=== PATIENT | male | born 1970 | race Caucasian/White ===

== ENCOUNTER → 2016-08-08 | Outpatient (CLI) | payer BC ==
[~2016-08-08] MED LIST: ASPEC81 PO; BRL90 PO; ESCI1TAB10 PO; LPR25 PO; LPT40 PO; LSN25 PO
--- NOTE | 2016-08-09 22:00 | POLYSOMNOGRAPH REPORT ---
CLINICAL DATA: A 45-year-old male with BMI of 31.85, referred with a history of loud snoring, witnessed apneic episodes, fatigue, and hypersomnolence. On the evening of 08/08/2016, a home sleep apnea test was performed using [employer] type 3 monitor. RECORDING RESULTS: Total recording time was 10 hours. The patient's estimated sleep time and patient monitoring time was 9.4 hours. RESPIRATORY DATA: Moderate sleep apnea was documented. The LOKI was 15.2. There were 46 obstructive, 12 mixed, and 22 central apneic episodes. There were 63 hypopneic episodes. The longest respiratory event recorded was 40 seconds. OXIMETRY DATA: Transient nocturnal hypoxemia was seen. Oxygen isidro was 85%. Mean saturation was 95%. Time below 89% was 1 minute. HEART RATE DATA: Heart rates ranged from 43-56 beats per minute. SNORING DATA: Snoring was recorded throughout the night. IMPRESSION: Moderate sleep apnea/hypopnea with an LOKI of 15.2. RECOMMENDATIONS: The patient may benefit from weight loss, use of an oral appliance or a repeat sleep study with CPAP. Clinical correlation is needed. JAREND
== END | disposition home or self-care (01) ==
LOC: C.NEUR 09:03
PROVIDERS: ATTEND Internal Medicine Pulmonary Disease
DX: G25.81 Restless legs syndrome (principal); G47.30 Sleep apnea, unspecified

== ENCOUNTER → 2016-09-19 | Outpatient (CLI) | payer BC ==
[2016-09-19 10:18] LABS: CHOLESTEROL/HDL RATIO 3.4; FERRITIN 71.3 ng/ml (8.0-388.0); MAGNESIUM 2.4 mg/dl (1.8-2.4); THYROID STIMULATING HORMONE 1.83 uIu/ml (0.300-4.500)
== END | disposition home or self-care (01) ==
LOC: C.LAB 07:15
DX: I25.10 Atherosclerotic heart disease of native coronary artery without angina pectoris (principal); G47.00 Insomnia, unspecified

== ENCOUNTER → 2016-12-12 | Outpatient (CLI) | payer BC ==
[~2016-12-12] MED LIST changes: +ASPI81TA28 PO; +ATOR-24 PO; +COQ10 PO; +LISI-461 PO; +LISI-789 PO; +TICA1TAB PO
[2016-12-12 09:40] LABS: BASO % 0.8 %; BASO ABS # 0.05 K/uL (0-0.2); COMPLETE YES; EOS % 3.4 %; HEMATOCRIT 41.5 % (42-52); IG% 0.2 %; LYMPH % 20.2 %; LYMPH ABS # 1.31 K/uL (1.2-3.4); MEAN CELL VOLUME 87.6 fL (80-100); MEAN CORPUSCULAR HEMOGLOBIN 29.5 pg (25-34); MEAN CORPUSCULAR HGB CONC 33.7 g/dl (32-36); MEAN PLATELET VOLUME 9.5 fL (7.4-10.4); MONO % 10.8 %; NEUT % 64.6 %; PLATELET COUNT 197 K/uL (130-400); RED BLOOD COUNT 4.74 M/uL (4.7-6.1); WHITE BLOOD COUNT 6.49 K/uL (4.8-10.8)
[2016-12-12 10:16] LABS: FERRITIN 159.8 ng/ml (8.0-388.0)
== END | disposition home or self-care (01) ==
LOC: C.LAB 08:57
DX: E61.1 Iron deficiency (principal); K62.5 Hemorrhage of anus and rectum

== ENCOUNTER 2017-05-08 17:47 | Emergency (ER) | payer BC ==
[~2017-05-08] VITALS: Ht 175.3 cm; Wt 105.1 kg
[~2017-05-08 17:47] MED LIST changes: -ASPI81TA28 PO; -ATOR-24 PO; -COQ10 PO; -LISI-461 PO; -LISI-789 PO; -TICA1TAB PO
[2017-05-08 17:59] VITALS: TEMP 36.8; Ht 175.3 cm; Wt 105.1 kg
[2017-05-08] MEDS ORDERED: LPR25 PO (18:33)
[2017-05-08] MEDS ORDERED: ASPI81TA28 PO (18:33)
[2017-05-08] MEDS ORDERED: TICA1TAB PO (18:33)
[2017-05-08] MEDS ORDERED: LISI-789 PO (18:33)
[2017-05-08] MEDS ORDERED: ATOR-24 PO (18:33)
--- NOTE | 2017-05-08 19:05 | DIAGNOSTIC IMAGING REPORT ---
R ANKLE MIN 3 VIEWS ROUTINE CLINICAL HISTORY: right ankle injury trauma. Pain. COMPARISON: None. DISCUSSION: Mild soft tissue edema. No acute bony abnormality. Subtalar joint is intact. Ankle mortise is aligned anatomically. IMPRESSION: Mild soft tissue edema. No acute bony and amount. The above report was generated using voice recognition software. It may contain grammatical, syntax or spelling errors. Electronically signed by: Huang Paiz M.D. 05/08/2017 7:04 PM Dictated Date/Time: 05/08/2017 7:03 PM
--- NOTE | 2017-05-08 19:11 | EMERGENCY ROOM VISIT NOTE ---
ED Visit Note First contact with patient: 18:07 CHIEF COMPLAINT: Ankle pain HISTORY OF PRESENT ILLNESS: This 46-year-old male patient presents to the emergency department ambulatory complaining of pain and swelling in the right ankle. The patient states that he dropped a soda can on his right ankle this morning. He has noticed increased swelling of the inside of the ankle since then. He has been able to walk on the ankle. He rates his discomfort a 2/10. The patient denies pain of the foot. No numbness or weakness of the foot, no laceration. The patient has not had a previous fracture to this ankle. The patient has taken no medication for the pain. The patient denies any other injury. He does take an aspirin daily, but no other blood thinners. REVIEW OF SYSTEMS: A 6 system review of systems was completed with positives and pertinent negatives listed in the HPI. ALLERGIES: No known drug allergies MEDICATIONS: See med list PMH: Heart disease SOCIAL HISTORY: The patient lives locally with family. Nonsmoker, admits to occasional alcohol use. PHYSICAL EXAM: Vital Signs: Reviewed Nurse's notes, vital signs stable. GENERAL : This is a 46-year-old male, no acute distress, well-developed, well- nourished. MENTAL STATUS: Alert, oriented to person place and time, and cooperative. MUSCULOSKELETAL: There is swelling over the medial aspect of the right ankle. There is mild tenderness to palpation over the medial aspect of the ankle. Full range of motion of ankle and toes. No tenderness of the right foot or proximal tibia/fibula. There is no visual deformity. The foot and toes are warm and well-perfused. Dorsalis pedis pulse 2+. Sensation to pain and light touch is intact. Capillary refill less than 2 seconds. RADIOGRAPHIC FINDINGS: R ANKLE MIN 3 VIEWS ROUTINE CLINICAL HISTORY: right ankle injury trauma. Pain. COMPARISON: None. DISCUSSION: Mild soft tissue edema. No acute bony abnormality. Subtalar joint is intact. Ankle mortise is aligned anatomically. IMPRESSION: Mild soft tissue edema. No acute bony abnormality. EMERGENCY DEPARTMENT COURSE: I examined the patient. X-rays of the right ankle were reviewed by myself and read by radiology and reveal soft tissue swelling without acute fracture or dislocation. Joni wrap was applied to the ankle. Patient is ambulating well and will not require crutches. He was advised to elevate the leg and ice to help reduce swelling. He verbalized understanding of my assessment and treatment plan. The patient was discharged home in good condition. Medication reconciliation: I attest that I have personally reviewed the patient 's current medication list. Blood Pressure Screening: Patient was found to have a slightly elevated blood pressure due to circumstances. I do not believe that the patient requires hypertension monitoring. DIAGNOSIS: Right ankle contusion Problem List Surgical Problems: (1) History of knee surgery Status: Resolved Current/Historical Medications Scheduled Aspirin (Aspirin Ec), 81 MG PO DAILY Atorvastatin (Lipitor), 40 MG PO DAILY Escitalopram Oxalate (Lexapro), 20 MG PO DAILY Lisinopril (Zestril), 2.5 MG PO DAILY Metoprolol Tartrate (Lopressor), 12.5 MG PO BID Ticagrelor (Brilinta), 90 MG PO BID Allergies Coded Allergies: No Known Allergies (Unverified , 06/07/16) Vital Signs Date Time Temp Pulse Resp B/P (MAP) Pulse Ox O2 Delivery O2 Flow Rate FiO2 05/08/17 19:39 72 18 138/82 96 05/08/17 17:59 36.8 73 18 147/85 95 Room Air Departure Information Impression Primary Impression: Contusion of right ankle Dispostion Home / Self-Care Condition GOOD Referrals Clay Bahena Jr,D.O. (PCP) Patient Instructions My [facility] Additional Instructions You have been treated in the Emergency Department for an Ankle injury. For pain control, you can use the following mutx-ers-hsczktl medicines (if >12 yo): - Regular strength (325mg/tab) Tylenol (acetaminophen) 2 tabs every 4-6 hours as needed. Do not exceed 12 tablets in a 24 hour period. Avoid taking more than 4 grams (4000 mg) of Tylenol per day. This includes any other sources of acetaminophen you may take on a regular basis. - Regular strength (200 mg/tab) Advil (ibuprofen) 1-2 tabs every 4-6 hours as needed. Do not exceed a dose of 3200 mg per day. If this is a recent injury (<24 hrs), ice can be applied to the area of pain for the first 3 days to help decrease pain and inflammation. Elevate the ankle to help reduce swelling. Rest of the ankle until swelling has decreased. Return to the Emergency Department if your current symptoms worsen despite treatment course outlined above, or if you develop any of the following symptoms : intractable pain despite aforementioned treatment course or new onset of numbness or tingling of the foot. Problem Qualifiers Primary Impression: Contusion of right ankle Encounter type: initial encounter Qualified Codes: S90.01XA - Contusion of right ankle, initial encounter
[2017-05-08 19:39] VITALS: BP 138/82; PULSE 72; O2SAT 96
== END 2017-05-08 19:40 | disposition home or self-care (01) ==
LOC: C.EDB 17:48 → C.EDD 19:40
DX: S90.01XA Contusion of right ankle, initial encounter (principal); W20.8XXA Other cause of strike by thrown, projected or falling object, initial encounter; Z79.82 Long term (current) use of aspirin

== ENCOUNTER → 2017-06-17 | Outpatient (CLI) | payer BC ==
[~2017-06-17] MED LIST changes: -ASPEC81 PO; +ASPI81TA28 PO; +ATOR-24 PO; -BRL90 PO; +COQ10 PO; +LISI-461 PO; -LPT40 PO; -LSN25 PO; +TICA1TAB PO
[2017-06-17 08:06] LABS: BASO % 0.4 %; BASO ABS # 0.03 K/uL (0-0.2); COMPLETE YES; EOS % 1.6 %; HEMATOCRIT 41.6 % (42-52); IG% 0.3 %; LYMPH % 24.1 %; LYMPH ABS # 1.69 K/uL (1.2-3.4); MEAN CELL VOLUME 86.5 fL (80-100); MEAN CORPUSCULAR HEMOGLOBIN 29.1 pg (25-34); MEAN CORPUSCULAR HGB CONC 33.7 g/dl (32-36); MEAN PLATELET VOLUME 9.6 fL (7.4-10.4); MONO % 10.7 %; NEUT % 62.9 %; PLATELET COUNT 192 K/uL (130-400); RED BLOOD COUNT 4.81 M/uL (4.7-6.1); WHITE BLOOD COUNT 7.02 K/uL (4.8-10.8)
[2017-06-17 08:36] LABS: ALT/SGPT 47 U/L (12-78); BLOOD UREA NITROGEN 16 mg/dl (7-18); BUN/CREATININE RATIO 14.7 (10-20); CALCIUM 9.1 mg/dl (8.5-10.1); CARBON DIOXIDE 28 mmol/L (21-32); CHLORIDE 106 mmol/L (98-107); CHOLESTEROL 122 mg/dl (0-200); CREATININE 1.11 mg/dl (0.60-1.40); GLUCOSE 99 mg/dl (70-99); POTASSIUM 3.9 mmol/L (3.5-5.1); SODIUM 139 mmol/L (136-145); TRIGLYCERIDES 152 mg/dl (0-150); VERY LOW DENSITY LIPOPROT CALC 30 mg/dl
[2017-06-17 08:39] LABS: ALB/GLOB RATIO 1.2 (0.9-2); ALKALINE PHOSPHATASE 75 U/L (45-117); AST/SGOT 25 U/L (15-37); CHOLESTEROL/HDL RATIO 2.9; HDL CHOLESTEROL 42 mg/dl; LDL CHOLESTEROL CALCULATED 50 mg/dl
== END | disposition home or self-care (01) ==
LOC: C.LAB 07:16
PROVIDERS: ATTEND Surgery
DX: I25.10 Atherosclerotic heart disease of native coronary artery without angina pectoris (principal); E78.5 Hyperlipidemia, unspecified; K40.90 Unilateral inguinal hernia, without obstruction or gangrene, not specified as recurrent; Z01.812 Encounter for preprocedural laboratory examination

== ENCOUNTER → 2017-06-28 | Outpatient (CLI) | payer BC | END | disposition home or self-care (01) | LOC: C.CPL 16:55 | PROVIDERS: ATTEND Surgery | DX: K40.90 Unilateral inguinal hernia, without obstruction or gangrene, not specified as recurrent (principal) ==

== ENCOUNTER → 2017-06-30 | Day surgery (SDC) | payer BC ==
[2017-06-16 11:27] VITALS: Ht 177.8 cm; Wt 102.3 kg
[~2017-06-30] VITALS: Ht 177.8 cm; Wt 102.3 kg
[~2017-06-30] MED LIST changes: +ATROPINE SULFATE 0.1 MG/ML 5ML SYR IV PRN; +BUPIVACAINE/EPINEPHRINE 0.5% MPF 1:200,000 30 ML VIAL ONE; +CEFAZOLIN 2000MG IV PUSH 10 ML IV SCH; +DEXAMETHASONE SOD INJ 4 MG/ML VIAL ONE; +EpHEDrine SULFATE INJ 50 MG/ML AMP IV PRN; +FENTANYL CITRATE INJ 50 MCG/1 ML 2 ML VIAL IV PRN; +FENTANYL CITRATE INJ 50 MCG/1 ML 2 ML VIAL ONE; +GLYCOPYRROLATE INJ 0.2 MG/ML VIAL ONE; +HYDR-5688 PO; +HYDROCODONE/ACETAMIN 5/325MG TAB PO PRN; +HYDROmorphone INJ 1 MG/ML SYR IV PRN; +KETOROLAC TROMETHAMINE 30 MG/ML VIAL ONE; +LACTATED RINGER'S 1000ML 1,000 ML IV SCH; +LIDOCAINE HCL 2% 2 ML VIAL (20MG/ML) ONE; +MIDAZOLAM HCL 1 MG/ML 2ML VIAL ONE; +MoRPHine SULFATE 4 MG/ML 1 ML CARP\\VIAL IV PRN; +NEOSTIGMINE METHYLSULFATE 5 MG/5 ML SYR ONE; +ONDANSETRON INJ 2 MG/ML 2 ML VIAL IV PRN; +ONDANSETRON INJ 2 MG/ML 2 ML VIAL ONE; +PROPOFOL IV EMULSION 10 MG/ML 20 ML VIAL IV ONE
--- NOTE | 2017-06-30 08:54 | History & Physical Bridge Note ---
H&P Re-Evaluation Bridge Note: I have examined the patient, reviewed the History & Physical and in the interval since the performance of the History & Physical I have noted the following changes of clinical significance: No changes noted
--- NOTE | 2017-06-30 11:22 | Discharge Instructions ---
Discharge Instructions Date of Service Jun 30, 2017. Visit Reason for Visit: Right Inguinal Hernia; Umbilical Hernia Discharge Discharge Diagnosis / Problem: repair of inguinal and umbilical hernias Discharge Goals Goal(s): Decrease discomfort Medications Stopped Medications Name(s): Kulwant last taken 06/24/17. Activity Recommendations Activity Limitations: as noted below Lifting Limitations: no more than 10 pounds Shower/Bathe: no limitations (ok to shower) Anesthesia . Post Anesthesia Instructions: If you have had General Anesthesia or IV Sedation: * Do not drive today. * Resume driving when surgeon permits. * Do not make important decisions or sign legal documents today. * Call surgeon for: 1. Temperature elevations greater than 101 degrees F. 2. Uncontrollable pain. 3. Excessive bleeding. 4. Persistent nausea and vomiting. 5. Medication intolerance (nausea, vomiting or rash). * For nausea and vomiting use only clear liquids such as: tea, soda, bouillon until nausea subsides, then gradually increase diet as tolerated. * If you have any concerns or questions, call your surgeon's office. If physician is unavailable and it is an emergency, call 911 or go to the nearest emergency room. . Instructions / Follow-Up Instructions / Follow-Up Dr. Barbosa in 1-2 weeks, call [phone] if you do not already have an appt or have any questions Diet Recommendations Recommended Home Diet: no limitations Procedures Procedures Performed: Right Inguinal Hernia Open Repair With Mesh, Umbilical Hernia Open Repair Pending Studies Studies pending at discharge: no Medical Emergencies . Who to Call and When: Medical Emergencies: If at any time you feel your situation is an emergency, please call 911 immediately. . Non-Emergent Contact Non-Emergency issues call your: Surgeon Call Non-Emergent contact if: you have a fever, temperature is above 101.5, your pain is not controlled, wound has increased pain, you have any medication questions . . "Provider Documentation" section prepared by Tony Morales. .
--- NOTE | 2017-06-30 11:24 | [facility] Operative Report ---
Operative Report Operative Date Jun 30, 2017. Pre-Operative Diagnosis Right inguinal hernia Umbilical hernia Post-Operative Diagnosis Same as pre-op Procedure(s) Performed Right Inguinal Hernia Open Repair With Mesh, Umbilical Hernia Open Repair; ilioinguinal neurolysis Surgeon Die Maker Surgeon(s) Daryl FUENTES Estimated Blood Loss 10ML Findings umbilical hernia; right inguinal hernia Specimens None Disposition Recovery Room / PACU Description of Procedure After informed consent was obtained the patient was taken the operating room and placed in the supine position. After successful placement of a laryngeal mask airway the umbilicus and right groin was shaved and sterilely prepped and draped in usual fashion. We began with the umbilical hernia. I began with an infraumbilical curvilinear incision with 15 blade scalpel. This was carried down through the soft tissue using electrocautery. We carried this down to the fascia. I then used a Randee clamp to come around the superior aspect of the umbilicus. I used electrocautery to take down the umbilical stalk revealing a small umbilical hernia. There was omentum incarcerated within it. I was able to use electrocautery to free up the omentum and dunked this back into the abdominal cavity. We excised the hernia sac. I then closed the fascial defect using 0 Ethibond in interrupted [id number] fashion. This was done with a relatively small amount of tension. Because of the small size I opted not to use mesh. Once the defect was closed we thoroughly irrigated the wound. I reattach the umbilical stalk to the fascia using 0 Vicryl. We then closed the deep space with 3-0 Vicryl and the skin with 4-0 Monocryl. Marcaine was injected around the area for postoperative analgesia and a sterile dressing was applied. Attention then turned to the right groin. Using a new scalpel I created an incision in the right groin. This was carried down through the soft tissue using electrocautery. The external oblique aponeurosis was skeletonized and a new blade was used to make a small opening in it. Metzenbaum scissors were used to carry this incision distally through the external ring as well as for several centimeters proximally. Once in the inguinal canal we bluntly dissected tissue away from the cord and cord structures. The cord was gently elevated off the pubic bone using blunt finger and a Edwardo placed around it. There was no evidence of a direct hernia. When we examined the cord structures there was a small hernia sac with some fat within it. We able to dissect this back to its neck and dunked it back into the abdominal cavity. We then used a piece of polypropylene mesh that was previously keyholed. It was placed as an onlay and secured distally to Kael's ligament laterally along the shelving portion of Poupart ligament and medially along the midline musculature. The "arms" of the mesh were wrapped around behind the cord and cord structures and secured underlying muscle. We used 0 Ethibond for all the suturing. At the end of the procedure there was adequate hemostasis. The mesh was nice and flat and did not appear to impinge on the cord structures. A thorough irrigation was performed. Marcaine was injected around the edges of the mesh for postoperative analgesia. The external oblique aponeurosis was closed using 2-0 Vicryl in a running fashion. Soft tissue was irrigated and closed using 3-0 Vicryl for the deeper layers and 4-0 Monocryl for the skin. Marcaine was injected around for postoperative analgesia as well and skin glue used as a dressing My physician's malt specifications control assistant was present throughout the entire case. He helped prep the patient as well as helped retract and expose for both hernia repairs. He also helped with both wound closure and dressing placement I attest to the content of the Intraoperative Record and any orders documented therein. Any exceptions are noted below.
[2017-06-30 12:11] VITALS: TEMP 36.5
--- NOTE | 2017-06-30 12:33 | Anesthesia Progress Nt - [facility] ---
Anesthesia Post Op Note Date & Time Jun 30, 2017 at 12:33 Vital Signs Pain Intensity: 2 Vital Signs Past 12 Hours Date Time Temp Pulse Resp B/P (MAP) Pulse Ox O2 Delivery O2 Flow Rate FiO2 06/30/17 12:11 36.5 61 18 118/79 (92) 95 Room Air 06/30/17 12:06 110/61 06/30/17 12:04 61 13 100 06/30/17 12:04 60 13 06/30/17 12:03 37.1 60 12 105/54 100 Room Air 06/30/17 12:03 60 12 100 06/30/17 12:03 60 12 06/30/17 12:02 105/54 06/30/17 11:58 60 10 06/30/17 11:58 60 10 99 06/30/17 11:57 115/55 06/30/17 11:53 62 6 06/30/17 11:53 62 6 97 06/30/17 11:52 62 10 06/30/17 11:52 63 10 96 06/30/17 11:51 107/57 06/30/17 11:48 104/54 06/30/17 11:47 61 8 100 06/30/17 11:47 61 8 06/30/17 11:42 59 15 96 06/30/17 11:42 59 15 06/30/17 11:41 126/73 06/30/17 11:37 60 3 100 06/30/17 11:37 60 3 06/30/17 11:36 119/72 06/30/17 11:34 60 12 100 06/30/17 11:34 61 12 06/30/17 11:31 120/74 06/30/17 11:29 65 7 06/30/17 11:29 63 7 100 06/30/17 11:26 121/76 06/30/17 11:24 60 14 98 06/30/17 11:24 60 14 06/30/17 11:21 120/78 06/30/17 11:20 121/79 06/30/17 11:19 36.9 65 16 121/79 96 Diffusion Mask 6 06/30/17 08:38 36.5 57 16 116/73 (87) 97 Room Air Notes Mental Status: alert / awake / arousable, participated in evaluation Pt Amnestic to Procedure: Yes Nausea / Vomiting: adequately controlled Pain: adequately controlled Airway Patency, RR, SpO2: stable & adequate BP & HR: stable & adequate Hydration State: stable & adequate Anesthetic Complications: no major complications apparent
[2017-06-30 12:43] VITALS: BP 111/69; PULSE 72; O2SAT 95
== END | disposition home or self-care (01) ==
LOC: X.SURG 08:06
PROVIDERS: ATTEND Surgery
DX: K40.90 Unilateral inguinal hernia, without obstruction or gangrene, not specified as recurrent (principal); I25.10 Atherosclerotic heart disease of native coronary artery without angina pectoris; G47.33 Obstructive sleep apnea (adult) (pediatric); E78.5 Hyperlipidemia, unspecified; I25.2 Old myocardial infarction; E78.00 Pure hypercholesterolemia, unspecified; F41.9 Anxiety disorder, unspecified; F32.9 Major depressive disorder, single episode, unspecified; K44.9 Diaphragmatic hernia without obstruction or gangrene; G25.81 Restless legs syndrome; Z80.52 Family history of malignant neoplasm of bladder; Z82.49 Family history of ischemic heart disease and other diseases of the circulatory system; Z79.82 Long term (current) use of aspirin; Z95.5 Presence of coronary angioplasty implant and graft